=== PATIENT | female | born 1995 | race Caucasian/White ===

== ENCOUNTER 2018-09-25 21:37 | Emergency (ER) | payer OTHER ==
[~2018-09-25] VITALS: Ht 167.6 cm; Wt 117.9 kg
--- NOTE | 2018-09-25 21:50 | NUR ---
PT BIBSELF C/O CHEST PAIN X12HR. DESCRIBED INTERMITTENT, NONRADIATING AND TIGHT. PT ALSO C/O NAUSEA AND HEADACHE. PT STATES SHE HAS DONE RECENT TRAVELING TO [place] OVER THE WEEKEND, PT ALSO TAKES CONTROL PILLS. PT AAOX4. RESPIRATIONS EVEN AND UNLABORED. SKIN WARM AND INTACT. NO ACUTE DISTRESS NOTED AT THIS TIME. PLACED ON MONITOR, WILL CONTINUE TO MONITOR.
--- NOTE | 2018-09-25 22:00 | NUR ---
MD AT BEDSIDE FOR EVALUATION
--- NOTE | 2018-09-25 22:10 | NUR ---
IV INITIATED RIGHT AC 18G. LABS DRAWN FROM SITE. 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 IV INTACT AND PATENT, PLACED ON SALINE LOCK
[2018-09-25 22:16] LABS: BASOPHILS # (AUTO) 0.1 /CMM (0.0-0.2); BASOPHILS % (AUTO) 0.9 % (0.0-2.0); EOSINOPHILS % (AUTO) 2.6 % (0.0-6.0); HEMATOCRIT 40 % (33-45); HEMOGLOBIN 13.4 g/dL (11.5-14.8); LYMPHOCYTES # (AUTO) 2.6 /CMM (0.8-4.8); LYMPHOCYTES % (AUTO) 26.8 % (20.0-44.0); MEAN CORPUSCULAR HGB CONC 34 g/dl (31.0-36.0); MEAN CORPUSCULAR VOLUME 84 fL (82-100); MONOCYTES # (AUTO) 0.5 /CMM (0.1-1.30); MONOCYTES % (AUTO) 4.8 % (2.0-12.0); NEUTROPHILS # (AUTO) 6.2 /CMM (1.8-8.9); NEUTROPHILS % (AUTO) 64.9 % (43.0-81.0); PLATELET COUNT (AUTO) 274 /CMM (150-450); RED BLOOD CELL COUNT(AUTO) 4.75 MIL/uL (4.0-5.2); WHITE BLOOD COUNT (AUTO) 9.6 K/uL (4.3-11.0)
[2018-09-25 22:26] LABS: CALCIUM, SERUM 9.2 mg/dL (8.5-10.1); CARBON DIOXIDE 30 mmol/L (21-32); CHLORIDE 99 mmol/L (98-107); CREATININE 0.9 mg/dL (0.6-1.3); GLUCOSE 266 mg/dL (74-106); POTASSIUM 3.9 mmol/L (3.5-5.1); SODIUM SERUM 135 mmol/L (136-145); UREA NITROGEN, BLOOD 15 mg/dL (7-18)
[2018-09-25] MEDS ORDERED: IV NS 0.9% 500 ML BAG IV ONE (22:30)
[2018-09-25 22:33] LABS: D-DIMER 2.41 mg/L(FEU (0.17-0.50)
[2018-09-25 22:39] LABS: B-TYPE NATRIURETIC PEPTIDE 15 PG/ML (0-125)
--- NOTE | 2018-09-25 22:55 | NUR ---
URINE COLLECTED AND CALLED LAB FOR FERRY BOAT CAPTAIN
[2018-09-25] MEDS ORDERED: IV NS 0.9% 250 ML IV ONE (23:08)
[2018-09-25] MEDS ORDERED: CT SWABBABLE VALVE TRANS SET 1 EA INFUS.SET MC ONE (23:08)
[2018-09-25] MEDS ORDERED: IOHEXOL-350 100 ML VIAL IV ONE (23:08)
--- NOTE | 2018-09-25 23:13 | NUR ---
PT BROUGHT BY RADIOLOGY TO CT
--- NOTE | 2018-09-26 01:40 | NUR ---
Patient discharged to home in stable condition. Written and verbal after care instructions given. Patient verbalizes understanding of instruction. IV removed. Catheter intact and site benign. Pressure and 4x4 applied to site. No bleeding noted. Pt ambulatory with a steady gait
[2018-09-26 01:41] VITALS: BP 134/84
== END 2018-09-26 01:42 | disposition home or self-care (01) ==
LOC: ER 21:39
DX: R07.89 Other chest pain (principal); I45.6 Pre-excitation syndrome; F41.9 Anxiety disorder, unspecified; G43.909 Migraine, unspecified, not intractable, without status migrainosus; Z98.890 Other specified postprocedural states
CPT/HCPCS: 36415; 71045; 71275; 80048; 83880; 84484; 84702; 84703; 85025; 85378; 85730; 93005 ×2; 99284; J7040; J7050; Q9967